=== PATIENT | female | born 1970 | race Caucasian/White ===

== ENCOUNTER 2018-06-29 15:46 | Emergency (ER) | payer OTHER ==
[2018-06-29 16:47] LABS: #Basophils 0.1 thou/uL (0.0-0.2); #Eosinphils 0.5 thou/uL (0.0-0.7); #Lymphocytes 2.1 thou/uL (1.20-3.40); #Monocytes 0.7 thou/uL (0.11-0.59); #Neutrophils 3.1 thou/uL (1.40-6.50); %Eosinophils 7.3 % (0.0-10.0); %Lymphocytes 32.5 % (21.0-51.0); %Monocytes 11.4 % (0.0-10.0); %Neutrophils 47.8 % (42.0-75.0); Hemoglobin 13.7 g/dL (12.0-16.0); Mean Corpuscular HGB CONC 35.2 g/dL (32.0-36.0); Mean Corpuscular Volume 96.6 fL (78.0-98.0); Platelet Count 220 thou/uL (130-400); RBC Distribution Width 11.7 % (11.5-14.5); Red Blood Cell (RBC) Count 4.03 mill/uL (4.20-5.40); White Blood Cell (WBC) Count 6.4 thou/uL (4.8-10.8)
[2018-06-29 17:09] LABS: ALT (SGPT) 64 U/L (8-55); AST (SGOT) 29 U/L (5-34); Albumin 4.3 g/dL (3.5-5.0); Alkaline Phosphatase 75 U/L (40-150); Anion Gap 12 mmol/L (10-20); BUN (Urea Nitrogen) 17 mg/dL (7.0-18.7); Bilirubin, Total 0.2 mg/dL (0.2-1.2); Calc. Creatinine Clearance 0 mL/min (70-130); Calcium 9.7 mg/dL (7.8-10.44); Carbon Dioxide 25 mmol/L (22-29); Chloride 105 mmol/L (98-107); Estimated GFR-MDRD 68; Globulin 3.7 g/dL (2.4-3.5); Glucose 138 mg/dL (70-105); Potassium 4.2 mmol/L (3.5-5.1); Sodium 138 mmol/L (136-145)
--- NOTE | 2018-06-29 17:40 | ULT ---
BILATERAL LOWER EXTREMITY VENOUS ULTRASOUND: HISTORY: Bilateral lower extremity redness and edema for two to three days. COMPARISON: None. TECHNIQUE: Multiplanar perez-scale and color Doppler images were obtained in a bilateral lower extremity venous u ltrasound. Spectral analysis of the Doppler waveforms was performed. FINDINGS: The bilateral common femoral veins, profunda femoral veins, superficial femoral veins, and popliteal veins are normal in appearance without visible thrombus. These vessels demonstrate normal compressio n, flow, and augmentation. The posterior tibial veins and greater saphenous veins are also patent. IMPRESSION: No evidence of deep venous thrombosis. POS: SUNSHINE
[2018-06-29] MEDS ORDERED: Lidocaine 1% w/Epinephrine 1:100K 20 ML VIAL ONE (19:09)
[2018-06-29] MEDS ORDERED: diphenhydrAMINE 50 MG/ML VIAL ONE (19:13)
[2018-06-29] MEDS ORDERED: HYDROcodone/Acetaminophen 5/325 mg Tablet ONE (19:47)
[2018-06-29] MEDS ORDERED: Ciprofloxacin 500 MG TAB ONE (19:48)
[2018-06-29] MEDS ORDERED: Ondansetron ODT 4 MG TAB ONE (19:48)
== END 2018-06-29 20:00 | disposition home or self-care (01) ==
LOC: ERS 15:46
DX: L02.412 Cutaneous abscess of left axilla (principal); E78.5 Hyperlipidemia, unspecified; K21.9 Gastro-esophageal reflux disease without esophagitis; F17.210 Nicotine dependence, cigarettes, uncomplicated; Z79.899 Other long term (current) drug therapy
CPT/HCPCS: 10061; 36415; 80053; 85025; 87070; 87205; 93970; 96365; 96375; J1200; J2001; J3370; Q0162

== ENCOUNTER 2018-07-07 09:26 | Outpatient (CLI) | payer OTHER | END 2018-07-07 09:27 | disposition home or self-care (01) | LOC: BICULT 09:26 | PROVIDERS: ATTEND Internal Medicine | DX: R74.0 Nonspecific elevation of levels of transaminase and lactic acid dehydrogenase [LDH] (principal); R16.0 Hepatomegaly, not elsewhere classified; K76.0 Fatty (change of) liver, not elsewhere classified | CPT/HCPCS: 76705 ==

== ENCOUNTER 2019-09-14 07:59 | Outpatient (CLI) | payer OTHER ==
[2019-09-14 14:24] LABS: #Basophils 0.1 thou/uL (0.0-0.2); #Eosinphils 0.7 thou/uL (0.0-0.7); #Lymphocytes 2.6 thou/uL (1.20-3.40); #Monocytes 0.7 thou/uL (0.11-0.59); #Neutrophils 3.5 thou/uL (1.40-6.50); %Basophils 0.9 % (0.0-1.0); %Eosinophils 9.7 % (0.0-10.0); %Lymphocytes 33.8 % (21.0-51.0); %Monocytes 9.3 % (0.0-10.0); %Neutrophils 46.2 % (42.0-75.0); Hemoglobin 13.3 g/dL (12.0-16.0); Mean Corpuscular HGB CONC 33.9 g/dL (32.0-36.0); Mean Corpuscular Hemoglobin 33.1 pg (27.0-31.0); Mean Corpuscular Volume 97.7 fL (78.0-98.0); Mean Platelet Volume 9.5 fL (7.4-10.4); Platelet Count 196 thou/uL (130-400); RBC Distribution Width 11.4 % (11.5-14.5); Red Blood Cell (RBC) Count 4.01 mill/uL (4.20-5.40); White Blood Cell (WBC) Count 7.7 thou/uL (4.8-10.8)
--- NOTE | 2019-09-15 10:25 | EKG ---
Test Reason : Blood Pressure : / mmHG Vent. Rate : 075 BPM Atrial Rate : 075 BPM P-R Int : 188 ms QRS Dur : 084 ms QT Int : 400 ms P-R-T Axes : 051 043 055 degrees QTc Int : 446 ms Normal sinus rhythm Normal ECG No previous ECGs available Confirmed by AIMEE STANLEY, DR. Lopez ([id number]) on 09/15/2019 10:25:19 AM Referred By: DEANGELO Confirmed By:DR. John YU MD
== END 2019-09-14 08:00 | disposition home or self-care (01) ==
LOC: LABBT 07:59
PROVIDERS: ATTEND Orthopaedic Surgery
DX: Z01.818 Encounter for other preprocedural examination (principal); G57.61 Lesion of plantar nerve, right lower limb
CPT/HCPCS: 85025; 93005; 93010

== ENCOUNTER 2019-09-15 05:55 | Day surgery (SDC) | payer OTHER ==
--- NOTE | 2019-09-14 09:13 | HP ---
HISTORY OF PRESENT ILLNESS: The patient is a 48-year-old female, who has a 10- year history of intermittent problems with the right foot, which become worse recently. She has burning and electrical shock sensation, which occurs at the base of her 4th toe. She has had no injury. She has had only partial relief with the use of a wider shoe box, supportive shoe wear, several cortisone injections, and anti-inflammatory medications. The patient had interfering with day-to-day activities. PAST HISTORY: The patient is otherwise in good health. She has history of reflux. She had a DVT in her left leg approximately 6 years ago without further problems. She has history of bipolar disease, currently on medication. She has had an appendectomy, tonsillectomy, hysterectomy, and cholecystectomy in the past. CURRENT MEDICATIONS: Include; 1. Protonix. 2.. Excedrin. ALLERGIES: SHE IS ALLERGIC TO SULFA, CHANTIX, LIPITOR, AND CRESTOR. FAMILY HISTORY: Otherwise unremarkable. SOCIAL HISTORY: Otherwise unremarkable. REVIEW OF SYSTEMS: Otherwise unremarkable. PHYSICAL EXAMINATION: GENERAL: A healthy female. HEENT: Unremarkable. NECK: Supple. CHEST: Clear. HEART: Regular rate and rhythm. ABDOMEN: Soft and nontender. PELVIC: Deferred. RECTAL: Deferred. BREASTS: Deferred. EXTREMITIES: Pertinent findings of the right foot. There is no swelling. There is tenderness in the 3rd web space between the 3rd and 4th metatarsal heads. There is pain with compression of the metatarsal heads. Neurovascular exam is intact. Pulses are 1+. There is no crepitus or instability. DIAGNOSTIC STUDIES: X-rays of the right foot are normal. 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 PLAN: Excision of Gutierrez's neuroma, 3rd interspace, right foot. The nature of the surgery, length of recovery, and potential complications, such as infection, loss of motion, incomplete relief, nerve injury, recurrence, need for additional treatment, and repeat surgery have been discussed in detail. She has been instructed use of preoperative and postoperative aspirin and early mobilization because of her history of a DVT. Job ID: [id number] [facility]
[2019-09-14 13:45] VITALS: BMI 35.2
[2019-09-15] MEDS ORDERED: Midazolam HCl 2 mg/2 ml Vial ONE (06:44)
[2019-09-15] MEDS ORDERED: Scopolamine 1.5 mg/72 hour Patch ONE (06:44)
[2019-09-15] MEDS ORDERED: Bupivacaine PF 0.5% 30 ML VIAL ONE (06:58)
[2019-09-15] MEDS ORDERED: Bacitracin Zinc Ointment 30 gm TUBE ONE (06:58)
[2019-09-15] MEDS ORDERED: Fentanyl 100 MCG/2 ML VIAL ONE ×2 (07:24→09:04)
--- NOTE | 2019-09-15 15:04 | OP ---
DATE OF PROCEDURE: 09/15/2019 ANESTHESIA: General. PREOPERATIVE DIAGNOSIS: Gutierrez neuroma, third interspace, right foot. POSTOPERATIVE DIAGNOSIS: Gutierrez neuroma, third interspace, right foot. PROCEDURES PERFORMED: Excision of Gutierrez neuroma, third interspace, right foot. DESCRIPTION OF PROCEDURE: After satisfactory anesthesia was induced in supine position, patient was prepped and draped in routine manner. The right leg was elevated and exsanguinated with an Esmarch bandage and the tourniquet inflated to 300 mmHg. A 3 cm incision was made over the dorsum of the third web space, carried down through the subcutaneous tissues. Bleeding points were controlled with Bovie cautery. Using sharp and blunt dissection, the interspace between the 3rd and 4th metatarsal heads was developed. A lamina video specialist was placed in between the metatarsal heads and the metatarsal heads were spread apart. The deep transverse metatarsal ligament was divided. The common digital nerve was identified. It was moderately inflamed. It was grasped and pulled into the wound and the proximal edge sharply excised and allowed to retract proximally and the remainder of the nerve was excised. There appeared to be satisfactory excision. The wound was then thoroughly irrigated. The subcutaneous tissues were infiltrated with 20 mL of 0.5% plain Marcaine. The skin was closed with interrupted 3-0 nylon and a sterile bulky compressive dressing was applied. The tourniquet deflated after 27 minutes. The foot promptly pinked up. Patient was placed into a postop shoe and awakened, taken to recovery room in stable condition. There were no apparent intraoperative complications. The estimated blood loss was negligible. The patient will be discharged home in satisfactory condition, instructed on ice, elevation, given written wound care instructions. She was instructed in ambulation with crutches or walker, partial weightbearing as tolerated. She has [place] 7.5, and Zofran at home for pain and nausea. She will be rechecked in my office in approximately 2 weeks or sooner if any problems prior to that time. Job ID: [id number]
== END 2019-09-15 10:33 | disposition home or self-care (01) ==
LOC: SDC 05:55
PROVIDERS: ATTEND Orthopaedic Surgery
PROC: 01BG0ZZ Excision of Tibial Nerve, Open Approach (ICD-10-PCS; principal; 2019-09-15)
DX: G57.61 Lesion of plantar nerve, right lower limb (principal); K21.9 Gastro-esophageal reflux disease without esophagitis; Z79.899 Other long term (current) drug therapy; Z88.2 Allergy status to sulfonamides; Z88.8 Allergy status to other drugs, medicaments and biological substances
CPT/HCPCS: J0690; J2250; J3010; S0020

== ENCOUNTER 2019-10-04 12:16 | Outpatient (CLI) | payer OTHER ==
--- NOTE | 2019-10-04 14:32 | MMO ---
Bilateral MAMMO Bilat Screen [facility]. CLINICAL HISTORY: Patient is 48 years old and is seen for screening. The patient has no family history of breast cancer. The patient has no personal history of cancer. The patient has a history of left Explantation in 2018 - PT STATED HYDRO SOMETHING LEFT BREAST SURGERY IN. VIEWS: The views performed were: bilateral craniocaudal with tomosynthesis and bilateral mediolateral oblique with tomosynthesis. This study has been interpreted with the assistance of computer-aided detection. MAMMOGRAM FINDINGS: There are scattered fibroglandular densities. There are no suspicious masses, suspicious calcifications, or new areas of architectural distortion. IMPRESSION: THERE IS NO MAMMOGRAPHIC EVIDENCE OF MALIGNANCY. A ROUTINE FOLLOW-UP MAMMOGRAM IN 1 YEAR IS RECOMMENDED. THE RESULTS OF THIS EXAM WERE SENT TO THE PATIENT. ACR BI-RADS Category 1 - Negative MAMMOGRAPHY NOTE: 1. A negative mammogram report should not delay a biopsy if a dominant of clinically suspicious mass is present. 2. Approximately 10% to 15% of breast cancers are not detected by mammography. 3. Adenosis and dense breasts may obscure an underlying neoplasm. Reported by: KJ PALUMBO MD Electonically Signed: [id number]
== END 2019-10-04 12:17 | disposition home or self-care (01) ==
LOC: BICMAMMO 12:16
PROVIDERS: ATTEND Internal Medicine
DX: Z12.31 Encounter for screening mammogram for malignant neoplasm of breast (principal)
CPT/HCPCS: 77063; 77067

== ENCOUNTER 2019-11-04 18:00 | Outpatient (CLI) | payer OTHER | END 2019-11-04 18:01 | disposition home or self-care (01) | LOC: SLEEPLAB 18:00 | PROVIDERS: ATTEND Internal Medicine | DX: G47.33 Obstructive sleep apnea (adult) (pediatric) (principal); K21.9 Gastro-esophageal reflux disease without esophagitis; E66.9 Obesity, unspecified; R09.02 Hypoxemia | CPT/HCPCS: 95806 ==

== ENCOUNTER 2019-12-07 20:30 | Outpatient (CLI) | payer OTHER | END 2019-12-07 20:31 | disposition home or self-care (01) | LOC: SLEEPLAB 20:30 | PROVIDERS: ATTEND Internal Medicine | DX: G47.33 Obstructive sleep apnea (adult) (pediatric) (principal); R06.83 Snoring; E66.9 Obesity, unspecified; K21.9 Gastro-esophageal reflux disease without esophagitis; F31.9 Bipolar disorder, unspecified | CPT/HCPCS: 95811 ==

== ENCOUNTER 2020-11-21 07:45 | Outpatient (CLI) | payer OTHER ==
--- NOTE | 2020-11-21 08:22 | MMO ---
Bilateral MAMMO Bilat Screen [facility]. CLINICAL HISTORY: Patient is 50 years old and is seen for screening. The patient has no family history of breast cancer. The patient has no personal history of cancer. The patient has a history of left Excisional Biopsy in 2018 - PT HAD STAPH REMOVED. VIEWS: The views performed were: bilateral craniocaudal with tomosynthesis and bilateral mediolateral oblique with tomosynthesis. FILMS COMPARED: The present examination has been compared to a prior imaging study performed at [facility] on 10/04/2019. This study has been interpreted with the assistance of computer-aided detection. MAMMOGRAM FINDINGS: There are scattered fibroglandular densities. There are stable benign appearing calcifications seen in both breasts. There are no suspicious masses, suspicious calcifications, or new areas of architectural distortion. IMPRESSION: THERE IS NO MAMMOGRAPHIC EVIDENCE OF MALIGNANCY. A ROUTINE FOLLOW-UP MAMMOGRAM IN 1 YEAR IS RECOMMENDED. THE RESULTS OF THIS EXAM WERE SENT TO THE PATIENT. ACR BI-RADS Category 2 - Benign finding MAMMOGRAPHY NOTE: 1. A negative mammogram report should not delay a biopsy if a dominant of clinically suspicious mass is present. 2. Approximately 10% to 15% of breast cancers are not detected by mammography. 3. Adenosis and dense breasts may obscure an underlying neoplasm. Reported by: LEORA MCDONALD MD Electonically Signed: [id number]
== END 2020-11-21 07:46 | disposition home or self-care (01) ==
LOC: BICMAMMO 07:45
PROVIDERS: ATTEND Internal Medicine
DX: Z12.31 Encounter for screening mammogram for malignant neoplasm of breast (principal)
CPT/HCPCS: 77063; 77067

== ENCOUNTER 2021-12-06 07:37 | Outpatient (CLI) | payer OTHER | END 2021-12-06 07:38 | disposition home or self-care (01) | LOC: BICMAMMO 07:37 | PROVIDERS: ATTEND Internal Medicine | DX: Z12.31 Encounter for screening mammogram for malignant neoplasm of breast (principal); Z80.3 Family history of malignant neoplasm of breast | CPT/HCPCS: 77063; 77067 ==

== ENCOUNTER 2021-12-17 06:50 | Outpatient (CLI) | payer OTHER | END 2021-12-17 06:51 | disposition home or self-care (01) | LOC: BICULT 06:50 | PROVIDERS: ATTEND Internal Medicine | DX: R74.01 Elevation of levels of liver transaminase levels (principal); Z90.49 Acquired absence of other specified parts of digestive tract | CPT/HCPCS: 76705 ==

== ENCOUNTER 2025-07-12 10:53 | Outpatient (CLI) | payer OTHER | END 2025-07-12 10:54 | disposition home or self-care (01) | LOC: BICCT 10:53 | PROVIDERS: ATTEND Internal Medicine | DX: Z12.31 Encounter for screening mammogram for malignant neoplasm of breast (principal); Z12.2 Encounter for screening for malignant neoplasm of respiratory organs; K76.0 Fatty (change of) liver, not elsewhere classified; F17.210 Nicotine dependence, cigarettes, uncomplicated; Z80.3 Family history of malignant neoplasm of breast | CPT/HCPCS: 71271; 77063; 77067 ==

== ENCOUNTER 2025-07-21 08:00 | Outpatient (CLI) | payer OTHER | END 2025-07-21 08:01 | disposition home or self-care (01) | LOC: PET 08:00 | PROVIDERS: ATTEND Internal Medicine | DX: R91.1 Solitary pulmonary nodule (principal) | CPT/HCPCS: 78815; A9552 ==

== ENCOUNTER 2025-08-04 08:20 | Outpatient (CLI) | payer OTHER | END 2025-08-04 08:21 | disposition home or self-care (01) | LOC: LABBT 08:20 | PROVIDERS: ATTEND Student in an Organized Health Care Education/Training Program | DX: Z01.818 Encounter for other preprocedural examination (principal); R91.8 Other nonspecific abnormal finding of lung field | CPT/HCPCS: 71045; 93005; 93010 ==

== ENCOUNTER 2025-08-12 08:52 | Emergency (ER) | payer OTHER ==
[2025-08-12 09:45] LABS: #Basophils 0.05 10x3/uL (0.0-0.2); #Eosinophils 0.61 10x3/uL (0.0-0.7); #Monocytes 1.10 10x3/uL (0.11-0.59); #Neutrophils 5.65 10x3/uL (1.40-6.50); %Basophils 0.6 % (0.0-1.0); %Eosinophils 6.7 % (0.0-10.0); %Lymphocytes 16.7 % (21.0-51.0); %Monocytes 12.1 % (0.0-10.0); %Neutrophils 62.4 % (42.0-75.0); Hematocrit 38.4 % (36.0-47.0); Hemoglobin 12.8 g/dL (12.0-16.0); Mean Corpuscular Hemoglobin 30.6 pg (27.0-31.0); Mean Corpuscular Volume 91.9 fL (78.0-98.0); Platelet Count 293 10x3/uL (130-400); Red Blood Cell (RBC) Count 4.18 mill/uL (4.20-5.40); White Blood Cell (WBC) Count 9.06 10x3/uL (4.8-10.8)
[2025-08-12 09:52] LABS: ALT (SGPT) 53 U/L (Less than 34); AST (SGOT) 31 U/L (11-34); Albumin 3.3 g/dL (3.1-4.5); Alkaline Phosphatase 80 U/L (40-110); Anion Gap 16 mmol/L (10-20); BUN (Urea Nitrogen) 9 mg/dL (9.8-20.1); Bilirubin, Total 0.4 mg/dL (0.3-1.2); Calc. Creatinine Clearance 0 mL/min (70-130); Calcium 9.6 mg/dL (7.8-10.44); Carbon Dioxide 23 mmol/L (22-29); Chloride 102 mmol/L (98-107); Globulin 3.7 g/dL (2.4-3.5); Glucose 122 mg/dL (70-105); Lipase 24 U/L (8-78); Potassium 4.2 mmol/L (3.5-5.1); Sodium 137 mmol/L (136-145)
[2025-08-12] MEDS ORDERED: HYDROcodone/Acetaminophen 5/325 mg Tablet ONE (11:38)
== END 2025-08-12 11:40 | disposition home or self-care (01) ==
LOC: ERS 08:52
DX: R06.00 Dyspnea, unspecified (principal); R09.89 Other specified symptoms and signs involving the circulatory and respiratory systems; F17.210 Nicotine dependence, cigarettes, uncomplicated
CPT/HCPCS: 71045; 80053; 83690; 84484; 85025; 93005

== ENCOUNTER 2025-08-22 13:14 | Outpatient (CLI) | payer OTHER | END 2025-08-22 13:15 | disposition home or self-care (01) | LOC: RAD 13:14 | PROVIDERS: ATTEND Student in an Organized Health Care Education/Training Program | DX: R91.8 Other nonspecific abnormal finding of lung field (principal) | CPT/HCPCS: 71046 ==